=== PATIENT | male | born 1960 | race Caucasian/White ===

== ENCOUNTER 2016-06-27 08:56 | Outpatient (RCR) | payer OTHER | END 2016-09-25 | LOC: WSOH | DX: T15.81XA Foreign body in other and multiple parts of external eye, right eye, initial encounter (principal) ==

== ENCOUNTER 2019-01-30 09:29 | Day surgery (SDC) | payer BC ==
[~2019-01-30] VITALS: Ht 180.3 cm; Wt 83.5 kg
[2019-01-30] VITALS (11 sets, daily range): BP systolic 105–126; BP diastolic 42–80; PULSE 48–69; TEMP 97.3–98.4
[2019-01-30] MEDS ORDERED: ASPIRIN E.C. 8181 MG PO (10:07)
[2019-01-30] MEDS ORDERED: EXCEDRIN1 TAB PO (10:07)
[2019-01-30] MEDS ORDERED: PLAVIX 75MG TAB75 MG PO (10:08)
[2019-01-30] MEDS ORDERED: ZESTRIL 10MG10 MG PO (10:08)
[2019-01-30] MEDS ORDERED: LIPITOR 80MG80 MG PO (10:08)
[2019-01-30] MEDS ORDERED: ALDACTONE 25MG25 M1 PO (10:09)
[2019-01-30] MEDS ORDERED: TOPROL XL 25MG25 MG PO (10:09)
[2019-01-30 10:39] LABS: HEMATOCRIT 39.1 % (42.0-52.0); HEMOGLOBIN 14.1 g/dl (13.5-18.0); MEAN CELL VOLUME 90 fl (80.0-100.0); MEAN CORPUSCULAR HEMOGLOBIN 32 pg (27.0-31.0); MEAN CORPUSCULAR HGB CONC 36 g/dl (33.0-37.0); MEAN PLATELET VOLUME 10.3 fl (7.4-10.4); PLATELET COUNT 181 K/mm3 (130-400); RED BLOOD COUNT 4.35 M/mm3 (4.20-5.60); REDCELL DISTRIBUTION WIDTH-CV 12.9 % (11.5-14.5)
[2019-01-30 10:41] LABS: INR 1.1 (0.8-3.0); PROTHROMBIN TIME 12.4 SECONDS (9.7-12.8)
[2019-01-30 10:53] LABS: CALCIUM 9.9 mg/dL (8.4-10.2); CREATININE, serum 0.82 (0.66-1.25); POTASSIUM 4.6 mmol/L (3.4-5.0)
--- NOTE | 2019-01-30 11:51 | NUR ---
SEE MERGE DOCUMENTATION FOR MEDICATION ADMINISTRATION TIMES AND INTRA/POST PROCEDURE SEDATION ASSESSMENTS.
--- NOTE | 2019-01-30 13:22 | NUR ---
PT ARRIVED TO ROOM 314 FROM [facility].AWAKE,A/OX3.POST OP VITALS STARTED.EDUCATION PROVIDED.DENIES PAIN OR DISCOMFORT AT THIS TIME.WILL CONTINUE TO MONITOR.CALL LIGHT IN REACH
--- NOTE | 2019-01-30 15:00 | NUR ---
PT ADMITTED TO FLOOR AT THIS TIME FROM ICD IMPLANTATION PROCEDURE. VITAL SIGN MONITORING INTIATED. NO C/O PAIN AT THIS TIME. DRESSING TO LT CHEST CDI. HOB AT 30 DEGREES PER ORDER.
--- NOTE | 2019-01-30 15:16 | NUR ---
Assessment complete.patient awake,a/ox3.denies pain or discomfort to left chest where ICD was inplanted.Gauze and tape in place.CDI.no drainage noted.sling to left hand and education provided on left hand movement.pt voiced understanding.LSCTA.breathing even and unlabored.pulses palpable.Vss.pt is independent in room.all meds given.patient denies any needs at this time.will continue to monitor.call light in reach
--- NOTE | 2019-01-30 15:38 | NUR ---
report given to MARCOS Vidal.
--- NOTE | 2019-01-30 15:40 | NUR ---
THIS NURSE TAKING OVER CARE FOR PT AT THIS TIME. PT HAS SOME C/O INCREASING PAIN. THIS NURSE BROUGHT PT ICE PACK AT THIS TIME. ASKED PT IF HE WANTED ANY TYLENOL AT THIS TIME. PT STATED THAT HE MIGHT AFTER HE EATS SOME FOOD, THAT HE ORDERED FOOD AT THIS TIME WELL.
--- NOTE | 2019-01-30 19:00 | NUR ---
PT HAD C/O INCREASING PAIN AT 1745, THIS NURSE ADMINISTERED PRN TYLENOL AT THAT TIME. THIS NURSE REASSESSED PAIN AT LATER HOUS AND PT STATED HE WAS HAVING NO PAIN AND FELT GOOD. EATING SUPPER AT THIS TIME. NO OTHER ISSUES OR CONSERNS VOICED.
--- NOTE | 2019-01-30 20:28 | NUR ---
PT IN BED WITH HOB ELEVATED TO 30 DEGREE ANGLE, WITH NO C/O PAIN OR DISCOMFORT, SLING ON LEFT ARM. PT WATCHTING TV AND IS COMFORTABLE. NO NEEDS AT THIS TIME, CALL LIGHT WITHIN REACH.
[2019-01-31 03:58] VITALS: BP 108/74; PULSE 63; TEMP 98.2
--- NOTE | 2019-01-31 05:41 | NUR ---
PT HAS BEEN UP ALL NIGHT LONG. PT WAS GIVEN PAIN MEDICATION TO HELP WITH HIS PAIN AND PT ADVISED ABOUT AFTER AN HOUR OF GETTING IT, THAT HIS PAIN WAS UNDER CONTROL. PT WAS GIVEN SEVERAL SNACKS THIS NIGHT. PT WAS C/O BEING BOTHER WHEN WE WOULD COME IN TO DO CARES BUT AFTER PAIN WAS CONTROLLED PT HAD A BETTER ATTITUDE. NO NEEDS AT THIS TIME, CALL LIGHT WITHIN REACH.
--- NOTE | 2019-01-31 05:55 | NUR ---
UNEVENTFUL NIGHT, PT SLEPT/RESTED WELL. NO S/S OF PAIN OR DISCOMFORT NOTED. CALL LIGHT WITHIN REACH.
--- NOTE | 2019-01-31 07:19 | NUR ---
CALLED DR. MORALES IN REFERENCE TO PT'S EKG TO AM. NO NEW ORDERS.
[2019-01-31 08:57] VITALS: BP 119/82; PULSE 81; TEMP 98.5
[2019-01-31 09:40] VITALS: BP 127/81; PULSE 79; TEMP 98.2
--- NOTE | 2019-01-31 10:19 | NUR ---
Initial visit; Patient thanked Venue Attendant for looking in on him and making him laugh. Venue Attendant offered God's blessings.
[2019-01-31] MEDS ORDERED: CEPHALEXIN500 M1 PO (11:04)
--- NOTE | 2019-01-31 11:54 | NUR ---
Pt stable this am. Pt ICD site CDI and gauze removed by cardiology this am. Pt denies pain or SOB this am. Pt applied ice to site this am. Pt up independently in room with sling in place. Pt IV no redness or infiltration noted. Pt received discharge instructions and education provided on ICD site and care instructions and denies needs at this time. Pt IV taken out and pressure dressing applied no bleeding. Pt has all belongings and denies needs at this time. Discharge medications and follow up appts reviewed with pt. Pt escorted out by alo.
--- NOTE | 2019-01-31 11:57 | NUR ---
SW met with the patient to discuss discharge plan. The patient lives alone in [place]. He reports independence with ADLs and does not use any DME. The patient's PCP is Dr. Rian Witt and he receives his medications from the [facility] in [place]. He reports no difficulties obtaining his meds. The patient plans to return home upon discharge. No additional needs at this time.
== END 2019-01-31 11:40 | disposition home or self-care (01) ==
LOC: MEDICAL 09:29 → COL.CAR 09:29 → MEDICAL 14:22 → COL.CAR 01-31 11:40
PROVIDERS: Internal Medicine Cardiovascular Disease
DX: I25.5 Ischemic cardiomyopathy (principal); I45.81 Long QT syndrome; I25.2 Old myocardial infarction; I25.10 Atherosclerotic heart disease of native coronary artery without angina pectoris; I50.9 Heart failure, unspecified; Z79.82 Long term (current) use of aspirin; Z79.02 Long term (current) use of antithrombotics/antiplatelets; Z87.891 Personal history of nicotine dependence
CPT/HCPCS: OP; C1721; C1777; C1894; J0690; J1200; J2250; J3010; J7030